=== PATIENT | female | born 1975 | race Caucasian/White ===

== ENCOUNTER → 2021-04-16 | Day surgery (SDC) | payer OTHER ==
[~2021-04-16] VITALS: Ht 162.6 cm; Wt 90.0 kg
[~2021-04-16] MED LIST: COZAAR100 MG PO; HCTZ12.5 MG PO; HYDROCODON-ACE1 EAC4 PO; MELOXICAM7.5 MG PO; METOPROLOL SUCC50 MG PO; PEPCID AC20 MG PO; PRAMOXINE HCL15 GM PR; RA VITAMIN C 5500 MG PO; SULFASALAZINE500 MG PO; VITAMIN B-12 PO; VITAMIN D3 PO
== END | disposition home or self-care (01) ==
LOC: FAS 09:56
DX: K22.2 Esophageal obstruction (principal); K21.00 Gastro-esophageal reflux disease with esophagitis, without bleeding; K31.7 Polyp of stomach and duodenum; K63.5 Polyp of colon; K59.09 Other constipation; I10 Essential (primary) hypertension; G47.00 Insomnia, unspecified; M06.9 Rheumatoid arthritis, unspecified; E55.9 Vitamin D deficiency, unspecified; Z79.899 Other long term (current) drug therapy; Z88.8 Allergy status to other drugs, medicaments and biological substances; Z90.710 Acquired absence of both cervix and uterus
CPT/HCPCS: J2250; J2704; J7120

== ENCOUNTER 2021-04-17 12:14 | Emergency (ER) | payer OTHER | END 2021-04-17 15:55 | disposition home or self-care (01) | LOC: FER 12:14 | DX: Z71.1 Person with feared health complaint in whom no diagnosis is made (principal); I10 Essential (primary) hypertension; M25.512 Pain in left shoulder; R49.0 Dysphonia; Z87.19 Personal history of other diseases of the digestive system; Z88.8 Allergy status to other drugs, medicaments and biological substances; Z79.899 Other long term (current) drug therapy | CPT/HCPCS: 71250 ==